=== PATIENT | male | born 1970 | race Two or more races ===

== ENCOUNTER 2017-04-01 16:51 | Emergency (ER) | payer MEDICAID ==
[~2017-04-01] VITALS: Ht 162.6 cm; Wt 74.8 kg
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
--- NOTE | 2017-04-01 17:16 | NUR ---
EUNICE AT BEDSIDE
--- NOTE | 2017-04-01 17:37 | NUR ---
SOLAR SITE ASSESSMENT SPECIALIST AT BEDSIDE
--- NOTE | 2017-04-01 18:02 | NUR ---
DR. LOUISE AT BS
[2017-04-01 18:23] LABS: CALCIUM, SERUM 9.3 mg/dL (8.5-10.1); POTASSIUM 3.6 mmol/L (3.5-5.1)
--- NOTE | 2017-04-01 19:55 | NUR ---
CALLED TRANSPORT ETA 60 MIN CORNEL GARCIA
[2017-04-01 20:17] VITALS: BP 148/100
--- NOTE | 2017-04-01 20:31 | NUR ---
PATIENT WAS PICKED [facility] BY [facility] SANDEE[facility]
== END 2017-04-01 20:41 | disposition home or self-care (01) ==
LOC: ER 16:56
DX: R07.81 Pleurodynia (principal); Z91.013 Allergy to seafood; W01.0XXA Fall on same level from slipping, tripping and stumbling without subsequent striking against object, initial encounter; Y92.89 Other specified places as the place of occurrence of the external cause; Y93.89 Activity, other specified; Y99.8 Other external cause status
CPT/HCPCS: 36415; 71010-TC; 80048-TC; A4606; J7050; Q9967; Z7610

== ENCOUNTER 2019-11-17 20:55 | Emergency (ER) | payer MEDICAID ==
[~2019-11-17] VITALS: Ht 162.6 cm; Wt 74.8 kg
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
[2019-11-17 21:19] LABS: BASOPHILS % (AUTO) 0.5 % (0.0-2.0); EOSINOPHILS % (AUTO) 1.9 % (0.0-6.0); HEMATOCRIT 46 % (39-51); HEMOGLOBIN 15.4 g/dL (13.5-17.5); LYMPHOCYTES # (AUTO) 1.5 /CMM (0.8-4.8); LYMPHOCYTES % (AUTO) 23.5 % (20.0-44.0); MEAN CORPUSCULAR HGB CONC 34 g/dl (31.0-36.0); MEAN CORPUSCULAR VOLUME 91 fL (80-96); MONOCYTES # (AUTO) 0.8 /CMM (0.1-1.30); MONOCYTES % (AUTO) 11.9 % (2.0-12.0); NEUTROPHILS % (AUTO) 62.2 % (43.0-81.0); PLATELET COUNT (AUTO) 307 /CMM (150-450); RED BLOOD CELL COUNT(AUTO) 5.05 MIL/uL (4.5-6.0); WHITE BLOOD COUNT (AUTO) 6.5 K/uL (4.3-11.0)
[2019-11-17] MEDS ORDERED: IV NS 0.9% 500 ML IV ONE (21:30)
[2019-11-17 21:31] LABS: CALCIUM, SERUM 9.1 mg/dL (8.5-10.1); CARBON DIOXIDE 27 mmol/L (21-32); CHLORIDE 106 mmol/L (98-107); CREATININE 0.9 mg/dL (0.6-1.3); GLUCOSE 103 mg/dL (74-106); POTASSIUM 3.9 mmol/L (3.5-5.1); SODIUM SERUM 142 mmol/L (136-145); UREA NITROGEN, BLOOD 18 mg/dL (7-18)
[2019-11-17 21:39] LABS: D-DIMER 0.87 mg/L(FEU (0.17-0.50)
[2019-11-17 21:43] LABS: ALANINE AMINOTRANSFERASE 12 U/L (12-78); ALBUMIN 3.8 g/dL (3.4-5.0); ALKALINE PHOSPHATASE 84 U/L (46-116); ASPARTATE AMINOTRANSFERASE 18 U/L (15-37); B-TYPE NATRIURETIC PEPTIDE 48 PG/ML (0-125); BILIRUBIN,TOTAL 0.4 mg/dL (0.2-1.0); TOTAL PROTEIN, SERUM 7.5 g/dL (6.4-8.2)
--- NOTE | 2019-11-17 21:47 | NUR ---
URINE SENT TO LAB
[2019-11-17 21:50] LABS: APPEARANCE,URINE Clear (CLEAR); BILIRUBIN,URINE Negative (NEGATIVE); BLOOD, URINE Negative Ery/uL (NEGATIVE); COLOR,URINE Yellow (YELLOW); KETONES,URINE Negative (NEGATIVE); LEUKOCYTE ESTERASE ,URINE Negative (NEGATIVE); NITRITE, URINE Negative (NEGATIVE); PH,URINE 6.5 (5.0-8.0); PROTEIN,URINE Negative (NEGATIVE); UGLUCOSE Negative (NEGATIVE); UROBILINOGEN,URINE 0.2 EU/dL (0.2)
[2019-11-17 21:54] LABS: C-REACTIVE PROTEIN 0.5 mg/dL (0.0-0.9); CREATINE KINASE, TOTAL 66 U/L (39-308); FERRITIN 117 ng/mL (8-388)
--- NOTE | 2019-11-17 22:04 | NUR ---
[facility] PAGED
[2019-11-17] MEDS ORDERED: LEVE750T4 PO (22:16)
[2019-11-17] MEDS ORDERED: CT SWABBABLE VALVE TRANS SET 1 EA INFUS.SET MC ONE ×2 (22:16→23:30)
[2019-11-17] MEDS ORDERED: IOHEXOL-350 100 ML VIAL IV ONE ×2 (22:16→23:29)
[2019-11-17] MEDS ORDERED: IV NS 0.9% 250 ML IV ONE ×2 (22:16→23:30)
--- NOTE | 2019-11-17 22:17 | NUR ---
Patient is resting comfortably in bed. Easily aroused. VSS.
[2019-11-17] MEDS ORDERED: MAGN400O6 PO (22:21)
[2019-11-17] MEDS ORDERED: BISA-79 PO (22:21)
[2019-11-17] MEDS ORDERED: CARB-95 PO (22:21)
[2019-11-17] MEDS ORDERED: CHOL-9 (22:21)
[2019-11-17] MEDS ORDERED: TYL2T PO (22:21)
--- NOTE | 2019-11-17 22:28 | NUR ---
PT WROTE ON HIS LAPTOP TO INFORM THAT HE IS NOT ALLERGIC TO FISH. ALLERGY LIST UPDATED
--- NOTE | 2019-11-17 23:03 | NUR ---
Patient is resting comfortably in bed. Easily aroused. VSS.
--- NOTE | 2019-11-17 23:32 | NUR ---
Amor pimentel in [facility] - 11/17/19 at 2349 by TATI BED ASSIGNMENT [id number]
[2019-11-18 00:07] VITALS: BP 116/78
--- NOTE | 2019-11-18 00:20 | NUR ---
Patient is resting comfortably in bed with eyes closed. Easily aroused. VSS.
--- NOTE | 2019-11-18 00:45 | NUR ---
[facility] ETA [id number]
--- NOTE | 2019-11-18 00:45 | NUR ---
SPOKE WITH VERITO PACK FROM [facility] AND INFORMED PT WILL RETURN TO FACILITY
--- NOTE | 2019-11-18 02:10 | NUR ---
IV removed. Catheter intact and site benign. Pressure and 4x4 applied to site. No bleeding noted.
--- NOTE | 2019-11-18 02:29 | NUR ---
REPORT GIVEN TO RIO BARON. PT TAKEN BACK TO FACILITY.
== END 2019-11-18 02:30 ==
LOC: ER 20:55
DX: U07.1 COVID-19 (principal); G81.94 Hemiplegia, unspecified affecting left nondominant side; R00.0 Tachycardia, unspecified; R09.81 Nasal congestion; R47.01 Aphasia; Z87.828 Personal history of other (healed) physical injury and trauma; R94.8 Abnormal results of function studies of other organs and systems
CPT/HCPCS: 36415; 71045; 71250; 71275; 74176; 80053; 81001; 82550; 82728; 83605; 83615; 83880; 84145; 84484; 85025; 85378; 85730; 86140; 87040 ×2; 87081; 87804 ×2; 93005; 99285; J7040; J7050 ×2; Q9967 ×2; 81000-TC